=== PATIENT | male | born 1955 | race African-American/Black ===

== ENCOUNTER 2017-11-05 20:04 | Emergency (ER) | payer OTHER ==
[2017-11-05 20:44] VITALS: BP 125/80
[2017-11-05 21:03] LABS: ABSOLUTE BASOPHILS # (AUTO) 0.1 10^3/uL (0.0-0.2); ABSOLUTE EOSINOPHILS # (AUTO) 0.1 10^3/uL (0.0-0.6); ABSOLUTE LYMPHOCYTES (AUTO) 1.9 10^3/uL (0.5-4.7); ABSOLUTE MONOCYTES (AUTO) 0.6 10^3/uL (0.1-1.4); ABSOLUTE NEUT (AUTO) 4.5 10^3/uL (1.7-8.2); BASOPHILS % (AUTO) 0.8 % (0-2); EOSINOPHILS % (AUTO) 1.7 % (0-6); HEMATOCRIT 33.5 % (37.9-51.0); HEMOGLOBIN 11.2 g/dL (13.5-17.0); LYMPHOCYTES % (AUTO) 26.1 % (13-45); MEAN CORPUSCULAR HEMOGLOBIN 29.7 pg (27.0-33.4); MEAN CORPUSCULAR HGB CONC 33.4 g/dL (32.0-36.0); MEAN CORPUSCULAR VOLUME 89 fl (80-97); PLATELET COUNT 369 10^3/uL (150-450); RED BLOOD COUNT 3.78 10^6/uL (4.35-5.55); RED CELL DISTRIBUTION WIDTH 14.3 % (11.5-14.0); SEGMENTED NEUTROPHILS % (AUTO) 62.4 % (42-78); TOTAL CELLS COUNTED % (AUTO) 100 %; WHITE BLOOD COUNT 7.2 10^3/uL (4.0-10.5)
[2017-11-05 21:23] LABS: ALANINE AMINOTRANSFERASE 38 U/L (21-72); ALBUMIN 3.7 g/dL (3.5-5.0); ALKALINE PHOSPHATASE 79 U/L (38-126); ANION GAP 12 (5-19); ASPARTATE AMINO TRANSFERASE 29 U/L (17-59); BILIRUBIN,DIRECT 0.3 mg/dL (0.0-0.4); BILIRUBIN,TOTAL 0.3 mg/dL (0.2-1.3); BLOOD UREA NITROGEN 23 mg/dL (7-20); CALCIUM 9.3 mg/dL (8.4-10.2); CARBON DIOXIDE 29 mmol/L (22-30); CHLORIDE 104 mmol/L (98-107); GLUCOSE 91 mg/dL (75-110); POTASSIUM 4.4 mmol/L (3.6-5.0); SODIUM 145.3 mmol/L (137-145); TOTAL PROTEIN 7.3 g/dL (6.3-8.2)
[2017-11-05 21:24] LABS: ACETAMINOPHEN < 10 ug/mL (10-30); ALCOHOL < 10 mg/dL (NONE DETECTED); SALICYLATE < 1.0 mg/dL (2.0-20.0)
--- NOTE | 2017-11-05 22:00 | ER Document Report ---
ED General - General Mode of Arrival: Medic Information source: Patient, Emergency Med Personnel TRAVEL OUTSIDE OF THE [place] IN LAST 30 DAYS: No - HPI Onset: Just prior to arrival Onset/Duration: Sudden Quality of pain: No pain Severity: Mild Pain Level: Denies Associated symptoms: Other Exacerbated by: Denies Relieved by: Denies Similar symptoms previously: No Recently seen / treated by doctor: No <KOBE OGLESBY - Last Filed: 11/05/17 21:58> <JAKE FUNG - Last Filed: 11/06/17 05:11> - General Chief Complaint: Psych Problem Stated Complaint: EDIVC Time Seen by Provider: 11/05/17 20:11 Notes: 62-year-old male presents with found wandering in traffic, pt covered in feces, denies any SI or HI, pt is noted to be homeless (KOBE OGLESBY) Past Medical History - Social History Smoking Status: Current Every Day Smoker Cigarette use (# per day): Yes Chew tobacco use (# tins/day): No Smoking Education Provided: No Family History: None Patient has suicidal ideation: No Patient has homicidal ideation: No - Past Medical History Cardiac Medical History: Reports: Hx Hypertension Renal/ Medical History: Denies: Hx Peritoneal Dialysis - Immunizations Hx Diphtheria, Pertussis, Tetanus Vaccination: No <KOBE OGLESBY - Last Filed: 11/05/17 21:58> Review of Systems <KOBE OGLESBY - Last Filed: 11/05/17 21:58> <JAKE FUNG - Last Filed: 11/06/17 05:11> - Review of Systems Notes: REVIEW OF SYSTEMS: CONSTITUTIONAL : Denies fever, chills, or sweats. Denies recent illness. EENT: Denies eye, ear, throat, or mouth pain or symptoms. Denies nasal or sinus congestion or discharge. Denies throat, tongue, or mouth swelling or difficulty swallowing. CARDIOVASCULAR: Denies chest pain. Denies palpitations or racing or irregular heart beat. Denies ankle edema. RESPIRATORY: Denies cough, cold, or chest congestion. Denies shortness of breath, difficulty breathing, or wheezing. GASTROINTESTINAL: Denies abdominal pain or distention. Denies nausea, vomiting , or diarrhea. Denies blood in vomitus, stools, or per rectum. Denies black, tarry stools. Denies constipation. GENITOURINARY: Denies difficulty urinating, painful urination, burning, frequency, blood in urine, or discharge. MUSCULOSKELETAL: Denies back or neck pain or stiffness. Denies joint pain or swelling. SKIN: Denies rash, lesions or sores. HEMATOLOGIC : Denies easy bruising or bleeding. LYMPHATIC: Denies swollen, enlarged glands. NEUROLOGICAL: Denies confusion or altered mental status. Denies passing out or loss of consciousness. Denies dizziness or lightheadedness. Denies headache. Denies weakness or paralysis or loss of use of either side. Denies problems with gait or speech. Denies sensory loss, numbness, or tingling. Denies seizures. PSYCHIATRIC: Denies anxiety or stress. Denies depression, suicidal ideation, or homicidal ideation. ALL OTHER SYSTEMS REVIEWED AND NEGATIVE. Dictation was performed using [employer] voice recognition software PHYSICAL EXAMINATION: GENERAL: Smells of feces HEAD: Atraumatic, normocephalic. EYES: Pupils equal round and reactive to light, extraocular movements intact, sclera anicteric, conjunctiva are normal. ENT: Nares patent, oropharynx clear without exudates. Moist mucous membranes. NECK: Normal range of motion, supple without lymphadenopathy LUNGS: Breath sounds clear to auscultation bilaterally and equal. No wheezes rales or rhonchi. HEART: Regular rate and rhythm without murmurs ABDOMEN: Soft, nontender, nondistended abdomen. No guarding, no rebound. No masses appreciated. Musculoskeletal: Normal range of motion, no pitting or edema. No cyanosis. NEUROLOGICAL: Cranial nerves grossly intact. Rambling speech normal sensory, motor exams PSYCH: Normal mood, normal affect. SKIN: Warm, Dry, normal turgor, no rashes or lesions noted. (KOBE OGLESBY) - Vital signs Vitals: Temp Pulse Resp BP Pulse Ox 97.9 F 78 16 125/80 100 11/05/17 20:42 11/05/17 20:42 11/05/17 20:42 11/05/17 20:42 11/05/17 20:42 Course - Laboratory Result Diagrams: 11/05/17 20:51 11/05/17 20:51 <KOBE OGLESBY - Last Filed: 11/05/17 21:58> - Laboratory Result Diagrams: 11/05/17 20:51 11/05/17 20:51 <JAKE FUNG - Last Filed: 11/06/17 05:11> - Re-evaluation Re-evalutation: 11/05/17 22:00 It is difficult to understand the patient and his complaints however given that he was walking in traffic I would at least keep him here overnight and let him shower and eat and have mental health evaluate him in the morning he appears medically stable otherwise (KOBE OGLESBY) 11/06/17 05:10 Nurse says that the patient has started him in the room and yelling at staff because they will not get him what he wants immediately. He is also from blankets at the staff and yells at them and is aggressive towards him when I really do not meet his every needs immediately. I did go evaluate the patient. Patient immediately told me he got his room and pulled his for his back as if he was going to hit me. There are police in the ER who stepped in and start the patient on talk to him. The police know him well. They said that he was just recently evicted from his apartment yesterday. They said that she has been on many different hotels in apartments and and will get evicted because she is always very demanding and rude. I said this is his normal baseline. Patient denies being suicidal homicidal. For the patient has since he is unable to cooperate or treat the staff with respect that he will be discharged. He is not currently hallucinating. He is not currently suicidal homicidal. I do not see any reason to hold him or sedate him against his will. Dictation of this chart was performed using voice recognition software; therefore, there may be some unintended grammatical errors. (JAKE FUNG) - Vital Signs Vital signs: Temp Pulse Resp BP Pulse Ox 97.9 F 78 16 125/80 100 11/05/17 20:42 11/05/17 20:42 11/05/17 20:42 11/05/17 20:42 11/05/17 20:42 - Laboratory Laboratory results interpreted by me: 11/05/17 11/05/17 20:51 20:51 RBC 3.78 L Hgb 11.2 L Hct 33.5 L RDW 14.3 H Sodium 145.3 H BUN 23 H Salicylates < 1.0 L Acetaminophen < 10 L Discharge <KOBE OGLESBY - Last Filed: 11/05/17 21:58> <JAKE FUNG - Last Filed: 11/06/17 05:11> - Discharge Clinical Impression: Agitation Condition: Good Disposition: HOME, SELF-CARE Additional Instructions: Please return to the ER if you have thoughts of suicide or homicide. I have provided a list of doctors you can follow up with for management of chronic medical problems. I have also provided information to [facility] human resources.
--- NOTE | 2017-11-05 23:29 | EKG REPORT ---
SEVERITY:- NORMAL ECG - SINUS RHYTHM : Confirmed by: Oneyda Early 05-Nov-2017 23:28:23
== END 2017-11-06 05:00 | disposition home or self-care (01) ==
LOC: ER 20:04
DX: R45.1 Restlessness and agitation (principal); Z59.0 Homelessness
CPT/HCPCS: 36415; 80053; 80307; 85025; 93005; 93010; 99284